=== PATIENT | female | born 1950 | race Caucasian/White ===

== ENCOUNTER 2016-09-19 09:08 | Day surgery (SDC) | payer MEDICARE, OTHER ==
--- NOTE | ~2016-09-19 | EGD ---
EGD REPORT [facility] [address] [id number] NAME: SELAM BEGUM : [birth year] STATUS : REG [facility] [place] PAT#: [id number] AGE: 66 ADM/REG DATE : 09/19/16 MR#: [id number] REPORT SERV DATE: 09/19/16 DICTATED BY: SPENCER MAGANA DATE: 09/19/16 REPORT STATUS : Draft [facility]ED [facility]: [facility] DATE: 09/19/16 Endoscopy Center Patient Name: Selam Begum Date of : 1950 Attending MD: SPENCER MAGANA MD Procedure Date No Time: 09/19/2016 Procedure: Upper GI endoscopy Indications: Epigastric abdominal pain, Dysphagia, Gastro-esophageal reflux disease Referring MD: MAGGIE GONZALEZ Medicines: Propofol per Anesthesia Complications: No immediate complications. Procedure: Pre-Anesthesia Assessment: - ASA Grade Assessment: III - A patient with severe systemic disease. After obtaining informed consent, the endoscope was passed under direct vision. Throughout the procedure, the patient's blood pressure, pulse, and oxygen saturations were monitored continuously. The GIF [id number] was introduced through the mouth, and advanced to the third part of duodenum. The upper GI endoscopy was accomplished without difficulty. The patient tolerated the procedure well. Findings: Non-severe esophagitis with no bleeding was found in the entire esophagus. No endoscopic abnormality was evident in the esophagus to explain the patient's complaint of dysphagia. It was decided, however, to proceed with dilation. A guidewire was placed and the scope was withdrawn. Dilation was performed with a Savary dilator with mild resistance at 60 Fr. The esophagus looked satisfactory post dilation A small hiatus hernia was present. Seen on retroflexion, done prior to dilation Diffuse mild inflammation characterized by congestion (edema) and erythema was found in the entire examined stomach. Biopsies were taken with a cold forceps for Helicobacter pylori testing. Localized mild inflammation characterized by congestion (edema) and erythema was found in the duodenal bulb. Biopsies were taken with a cold forceps for evaluation of celiac disease. And giardia, whipple's disease, and enteritis The 2nd part of the duodenum and 3rd part of the duodenum were normal. Biopsies were taken with a cold forceps for evaluation of celiac disease. And giardia, whipple's disease, and enteritis EGD REPORT [place] [id number] [facility] [place]. [address] NAME: SELAM BEGUM : [birth year] STATUS : [facility]#: [id number] AGE: 66 ADM/REG DATE : 09/19/16 MR#: [id number] REPORT SERV DATE: 09/19/16 DICTATED BY: SPENCER MAGANA DATE: 09/19/16 REPORT STATUS : Draft TRANSCRIBED BY: [email or web address] DATE: 09/19/16 Impression: - Non-severe esophagitis. - No endoscopic esophageal abnormality to explain patient's dysphagia. Esophagus dilated. Dilated. - Hiatus hernia. - Gastritis. Biopsied. - Duodenitis. Biopsied. - Normal 2nd part of the duodenum and 3rd part of the duodenum. Biopsied. Recommendation: - Patient has a contact number available for emergencies. The signs and symptoms of potential delayed complications were discussed with the patient. Return to normal activities tomorrow. Written discharge instructions were provided to the patient. - diet is clear liquid today, full liquid tomorrow, soft mushy food the next day, and resume usual diet the day after that. - Await pathology results. - Continue present medications. - Return to my office as previously scheduled. - Discharge patient to home. Procedure Code(s): --- Professional --- 77661, Esophagogastroduodenoscopy, flexible, transoral; with insertion of guide wire followed by passage of dilator(s) through esophagus over guide wire 18905, Esophagogastroduodenoscopy, flexible, transoral; with biopsy, single or multiple Diagnosis Code(s): --- Professional --- K20.9, Esophagitis, unspecified R13.10, Dysphagia, unspecified K44.9, Diaphragmatic hernia without obstruction or gangrene K29.70, Gastritis, unspecified, without bleeding K29.80, Duodenitis without bleeding R10.13, Epigastric pain K21.9, Gastro-esophageal reflux disease without esophagitis CPT copyright 2013 [employer] [place] [employer]. All rights reserved. The codes documented in this report are preliminary and upon haul cane brakeman review may be revised to meet current compliance requirements. Spencer Magana MD EGD REPORT [facility] [address] [id number] NAME: SELAM BEGUM : [birth year] STATUS : REG [facility] [place] PAT#: [id number] AGE: 66 ADM/REG DATE : 09/19/16 MR#: [id number] REPORT SERV DATE: 09/19/16 DICTATED BY: SPENCER MAGANA DATE: 09/19/16 REPORT STATUS : Draft TRANSCRIBED BY: [employer] DATE: 09/19/16 SPENCER MAGANA MD 09/19/2016 2:12 PM This report has been signed electronically. Number of Addenda: 0 Note Initiated On: 09/19/2016 1:18 PM Scope Withdrawal Time 0 hours 0 minutes 0 seconds [id number] [id number]
[~2016-09-19 09:08] MED LIST: ASAB PO; BENTYL10 PO; CLARIT10 PO; DEPAKOT500 PO; DITRO5 PO; HCTZ25B PO; IMITREX50 PO; MYRBETRIQ25 MG PO; PRAVACHOL40 MG PO; PRILO PO; PVC V; RANITIDINE300 MG PO; STOOL SOFTENER PO; SYMBICORT 160/41 INH INH; XANAX2 MG PO; ZANTAC 150 PO; ZOL100 PO
== END 2016-09-19 23:59 | disposition home or self-care (01) ==
LOC: DMU 09:08
PROVIDERS: Internal Medicine Gastroenterology
PROC: 0DB68ZX Excision of Stomach, Via Natural or Artificial Opening Endoscopic, Diagnostic (ICD-10-PCS; 2016-09-19)
PROC: 0D758ZZ Dilation of Esophagus, Via Natural or Artificial Opening Endoscopic (ICD-10-PCS; principal; 2016-09-19 10:00)
PROC: 0DB98ZX Excision of Duodenum, Via Natural or Artificial Opening Endoscopic, Diagnostic (ICD-10-PCS; 2016-09-19 10:00)
DX: K20.9 Esophagitis, unspecified (principal); K44.9 Diaphragmatic hernia without obstruction or gangrene; K29.80 Duodenitis without bleeding; F41.9 Anxiety disorder, unspecified; D64.9 Anemia, unspecified; G47.33 Obstructive sleep apnea (adult) (pediatric); I10 Essential (primary) hypertension
CPT/HCPCS: 88305